=== PATIENT | female | born 1995 | race Caucasian/White ===

== ENCOUNTER 2017-01-25 02:35 | Inpatient (IN) | payer OTHER ==
[2017-01-25] VITALS (54 sets, daily range): BP systolic 81–149; BP diastolic 39–115
[~2017-01-25 02:35] MED LIST: BREAST PUMP MC; ENDOCET 5-3251 EACH PO; IBUPROFEN800 MG PO
[2017-01-25 06:13] LABS: EOSINOPHIL (%) 0.5 % (0-5); EOSINOPHIL COUNT 0.1 K/uL (0-0.3); HEMATOCRIT 36.1 % (36.0-46.0); IMMATURE GRANULOCYTE (%) 0.9 % (0.0-0.7); IMMATURE GRANULOCYTE COUNT 0.1 K/uL; INSTRUMENT ABS NEUTROPHIL CT 10.1 K/uL; LYMPHOCYTE COUNT 2.6 K/uL (1.0-2.8); MCH 27.3 PG (29.0-34.0); MCHC 31.9 G/DL (30.0-36.0); MCV 85.7 FL (83-99); MEAN PLAT.VOLUME 11.5 uM^3 (9.5-12.4); MONOCYTE (%) 6.8 % (3-12); MONOCYTE COUNT 0.9 K/uL (0-0.8); NEUTROPHIL (%) 73.2 % (45-76); NEUTROPHIL COUNT 10.1 K/uL (1.8-6.4); PLATELET COUNT 214 K/uL (156-360); RBC DIS.WIDTH-CV 13.9 % (11.8-14.6); RED BLOOD COUNT 4.21 M/uL (3.80-5.20); WHITE BLOOD COUNT 13.8 K/uL (4.1-10.2)
[2017-01-26] VITALS (10 sets, daily range): BP systolic 97–122; BP diastolic 55–88
[2017-01-27 23:09] VITALS: BP 110/79
[2017-01-28 07:31] VITALS: BP 95/53
[2017-01-28] MEDS ORDERED: MOTRIN800 MG PO (10:05)
[2017-01-28] MEDS ORDERED: IBUPROFEN800 MG PO (10:05)
== END 2017-01-28 12:48 | disposition home or self-care (01) | DRG 774 ==
LOC: LDRP-OP 02:35 → 2WEST 02:36 → LDRP-OP 03-04 16:16
PROVIDERS: Nurse Practitioner
PROC: 00HU33Z Insertion of Infusion Device into Spinal Canal, Percutaneous Approach (ICD-10-PCS; principal; 2017-01-25)
PROC: 3E0R3CZ (ICD-10-PCS; principal; 2017-01-25)
PROC: 10907ZC Drainage of Amniotic Fluid, Therapeutic from Products of Conception, Via Natural or Artificial Opening (ICD-10-PCS; principal; 2017-01-25)
PROC: 10E0XZZ Delivery of Products of Conception, External Approach (ICD-10-PCS; 2017-01-26)
PROC: 3E0R3GC Introduction of Other Therapeutic Substance into Spinal Canal, Percutaneous Approach (ICD-10-PCS; 2017-01-27)
DX: O99.824 Streptococcus B carrier state complicating childbirth (principal); O77.0 Labor and delivery complicated by meconium in amniotic fluid; G97.1 Other reaction to spinal and lumbar puncture; O98.313 Other infections with a predominantly sexual mode of transmission complicating pregnancy, third trimester; A60.00 Herpesviral infection of urogenital system, unspecified; R06.00 Dyspnea, unspecified; Z3A.39 39 weeks gestation of pregnancy; Z37.0 Single live birth; O99.334 Smoking (tobacco) complicating childbirth; F17.200 Nicotine dependence, unspecified, uncomplicated; O99.413 Diseases of the circulatory system complicating pregnancy, third trimester; Q23.1 Congenital insufficiency of aortic valve; O99.343 Other mental disorders complicating pregnancy, third trimester; F32.9 Major depressive disorder, single episode, unspecified
CPT/HCPCS: 85025; C1755; G0378; J1050; J2405; J2540; J3010; J7120

== ENCOUNTER 2017-01-31 14:29 | Emergency (ER) | payer OTHER ==
[~2017-01-31] VITALS: Ht 152.4 cm; Wt 70.1 kg
[~2017-01-31 14:29] MED LIST changes: +MOTRIN800 MG PO
[2017-01-31] MEDS ORDERED: COMPAZINE10 MG PO (19:43)
[2017-01-31 20:04] VITALS: BP 120/71
== END 2017-01-31 20:06 | disposition home or self-care (01) ==
LOC: EME 14:29
DX: G97.1 Other reaction to spinal and lumbar puncture (principal); Y84.4 Aspiration of fluid as the cause of abnormal reaction of the patient, or of later complication, without mention of misadventure at the time of the procedure; F17.200 Nicotine dependence, unspecified, uncomplicated
CPT/HCPCS: 99281; 99284; J0780